=== PATIENT | male | born 1945 | race Two or more races ===

== ENCOUNTER 2018-10-14 08:36 | Day surgery (SDC) | payer OTHER ==
[~2018-10-14] VITALS: Ht 185.4 cm; Wt 121.6 kg
[~2018-10-14 08:36] MED LIST: XANAX1 MG PO; ZESTRIL5 MG PO
[2018-10-15] MEDS ORDERED: TYLENOL EXTRA500 MG PO (10:03)
== END 2018-10-15 09:00 | disposition home or self-care (01) ==
LOC: SURH 08:36 → O/R 08:36 → CIR.AMB 08:36 → SURH 09:00 → EDSTATUS 11:30 → O/R 17:55 → SURH 17:55 → CIR.AMB 10-15 09:00 → O/R 10-15 11:40 → SURH 10-15 11:40
DX: K62.1 Rectal polyp (principal)